=== PATIENT | male | born 1980 | race Caucasian/White ===

== ENCOUNTER → 2021-09-18 | Outpatient (CLI) | payer OTHER ==
--- NOTE | 2021-09-18 15:55 | KCIC ---
EXAM: Cervical spine MRI without contrast. HISTORY: Neck pain. Left upper extremity paresthesia. TECHNIQUE: Multiplanar, multisequence magnetic resonance imaging of the cervical spine was performed without contrast. COMPARISON: None. FINDINGS: There is extensive metallic artifact obscuring the C4-C7 vertebral levels on sagittal and a xial images. There is no significant listhesis. The visualized cervical and upper thoracic levels. No suspicious osseous lesion is seen. There is no acute or subacute fracture. The posterior fossa is un remarkable. At C2-C3, there is no stenosis. At C3-C4, there is a disc bulge and endplate remodeling. There is no stenosis. At C7-T1, there is a right paracentral disc protrusion. There is no stenosis. IMPRESSION: 1. Significantly limited exam due to metallic artifact. This obscures the C4-C7 levels. CT myelograph y may be useful for better characterization given the degree of artifact on MRI. 2. Degenerative change involving the visualized upper cervical spine and cervical thoracic junction. No stenosis is seen. Electronically signed by: Laura Ellison MD (09/18/2021 3:52 PM) [id number]
== END ==
LOC: KCIC MRI 13:07
PROVIDERS: ATTEND Family Medicine Sports Medicine
DX: M47.813 Spondylosis without myelopathy or radiculopathy, cervicothoracic region (principal); M50.21 Other cervical disc displacement, high cervical region
CPT/HCPCS: 72141